=== PATIENT | female | born 1985 | race Caucasian/White ===

== ENCOUNTER → 2017-08-27 | Outpatient (CLI) | payer MEDICAID ==
[~2017-08-27] MED LIST: ACET50TA PO; IMIT50TA PO
[2017-08-27 18:15] LABS: MEAN CORPUSCULAR HEMOGLOBIN 31.7 pg (27.0-33.0); MEAN CORPUSCULAR HGB CONC 33.5 g/dl (32.0-36.5); MEAN CORPUSCULAR VOLUME 94.5 fl (80.0-96.0); RED CELL DISTRIBUTION WIDTH 14.3 % (11.5-14.5); WHITE BLOOD COUNT 7.6 10^3/uL (4.0-10.0)
== END ==
LOC: M LRY 13:13
PROVIDERS: ATTEND Obstetrics & Gynecology
DX: Z34.82 Encounter for supervision of other normal pregnancy, second trimester (principal)

== ENCOUNTER 2017-09-12 11:06 | Outpatient (CLI) | payer MEDICAID ==
[~2017-09-12] VITALS: Ht 157.5 cm; Wt 191.0 kg
[2017-09-12] MEDS ORDERED: ACET50TA PO (11:16)
[2017-09-12 11:31] VITALS: BP 119/67
[2017-09-12] MEDS ORDERED: ACETAMINOPHEN 500 MG TAB PO PRN (12:00)
[2017-09-12] MEDS ORDERED: IMIT50TA PO (14:40)
== END 2017-09-12 14:20 | disposition home or self-care (01) ==
LOC: M LDO 11:06
PROVIDERS: ATTEND Obstetrics & Gynecology
DX: O26.892 Other specified pregnancy related conditions, second trimester (principal); G43.909 Migraine, unspecified, not intractable, without status migrainosus; Z3A.27 27 weeks gestation of pregnancy; Z88.0 Allergy status to penicillin; Z88.7 Allergy status to serum and vaccine; O99.352 Diseases of the nervous system complicating pregnancy, second trimester

== ENCOUNTER → 2017-10-22 | Outpatient (CLI) | payer MEDICAID ==
[2017-10-22 13:29] LABS: BASO % 0.5 % (0.0-1.0); EOS # 0.1 10^3/uL (0.0-0.50); IMMATURE GRANULOCYTE % 0.7 % (0-0); LYMPH # 1.5 10^3/uL (1.5-4.5); LYMPH % 24.5 % (24.0-44.0); MEAN CORPUSCULAR HEMOGLOBIN 30.9 pg (27.0-33.0); MEAN CORPUSCULAR HGB CONC 32.6 g/dl (32.0-36.5); MEAN CORPUSCULAR VOLUME 94.6 fl (80.0-96.0); MONO # 0.6 10^3/uL (0.0-0.8); NEUTROPHILS # 3.9 10^3/uL (1.8-7.7); NEUTROPHILS % 63.3 % (36.0-66.0); PLATELET COUNT, AUTOMATED 168 10^3/uL (150-450); RED CELL DISTRIBUTION WIDTH 14.5 % (11.5-14.5); WHITE BLOOD COUNT 6.1 10^3/uL (4.0-10.0)
[2017-10-22 13:48] LABS: ALT/SGPT 15 U/L (12-78); AST/SGOT 14 U/L (7-37); BILIRUBIN,TOTAL 0.3 MG/DL (0.2-1.0); GLOMERULAR FILTRATION RATE > 60.0 (>60); URIC ACID 4.2 MG/DL (2.6-6.0)
== END ==
LOC: M SMT 09:57
PROVIDERS: ATTEND Advanced Practice Midwife
DX: R51 Headache (principal)

== ENCOUNTER → 2017-10-29 | Outpatient (CLI) | payer MEDICAID ==
--- NOTE | 2017-10-29 09:40 | REP ---
OBSTETRIC SONOGRAPHY: HISTORY: Size/date discrepancy. Gestational diabetes. Size greater than dates. FINDINGS: Scanning through the gravid uterus demonstrates a viable single intrauterine gestation in a cephalic lie. A posterior placenta is seen without evidence of previa. Amniotic fluid is subjectively normal. FAUZIA is normal 8.9 cm. S/D ratio in the umbilical cord artery by Doppler is normal at 2.47. No anomaly is seen. The following anatomic structures are identified and felt to be unremarkable: cranium, choroid plexus, cavum, cerebellum and posterior fossa, face and profile, lungs, four-chamber heart, diaphragm, left-sided stomach, three-vessel cord, kidneys and bladder, spine, upper and lower extremities. Left and right ventricular outflow tract views and abdominal wall cord insertion were not seen due to position. Biometry Chart: BPD 8.0 cm = 32 weeks 2 days HC 30.3 cm = 33 weeks 4 days AC 28.1 cm = 32 weeks 1 day FL 6.4 cm = 33 weeks 0 days CD 4.3 cm = 33 weeks 6 days HC/AC ratio normal 1.08. Cephalic index normal 0.73. Estimated weight 2008 grams, 4 pounds 6 ounces, 44th percentile for 32 weeks 4 days. IMPRESSION: Viable single intrauterine gestation at 32 weeks 4 days by today's composite sonographic criteria. TOMEKA by today's sonography December 20, 2017. Signed by Benny Ayoub MD 10/29/2017 11:18 A
== END ==
LOC: M SMT 07:58
PROVIDERS: ATTEND Obstetrics & Gynecology
DX: O26.843 Uterine size-date discrepancy, third trimester (principal); R51 Headache; Z3A.32 32 weeks gestation of pregnancy; O24.419 Gestational diabetes mellitus in pregnancy, unspecified control